=== PATIENT | male | born 1975 | race Caucasian/White ===

== ENCOUNTER 2022-11-29 11:40 | Outpatient (REF) | payer BC, SELFPAY ==
[2022-11-29 13:30] LABS: MANUAL DIFF FLAG NO
[2022-11-29 13:32] LABS: Basophils Absolute Auto 0.1 X10*3/uL (0.0-0.2); Eosinophils Absolute Auto 0.2 X10*3/uL (0.0-0.4); Eosinophils Percent Auto 4.5 % (0-4); Hematocrit 49.2 % (42.0-52.0); Imm Gran Abs Auto 0.03 X10*3/uL (0.00-0.03); Imm Gran Pct Auto 0.6 % (0.0-0.4); Lymphocytes Absolute Auto 1.7 X10*3/uL (1.2-4.9); Lymphocytes Percent Auto 34.4 % (20-40); Mean Corpuscular HGB Conc 34.6 g/dl (31.0-36.0); Mean Corpuscular Hemoglobin 31.4 pg (27.0-33.0); Mean Corpuscular Volume 90.9 fL (80.0-98.0); Mean Platelet Volume 9.5 fL (9.4-12.4); Monocytes Absolute Auto 0.4 X10*3/uL (0.1-1.2); Monocytes Percent Auto 7.3 % (2-11); Neutrophils Absolute Auto 2.6 x10*3/uL (2.0-8.3); Neutrophils Percent Auto 52.2 % (45-73); Platelet Count 177 X10*3/uL (160-400); Red Blood Count 5.41 X10*6/uL (4.60-5.80); White Blood Count 5.1 X10*3/uL (4.8-10.8)
[2022-11-29 13:56] LABS: Alanine Aminotransferase 111 U/L (0-40); Albumin Level 4.3 g/dL (3.5-5.0); Alkaline Phosphatase 103 U/L (39-117); Anion Gap 14 (12-20); Aspartate Amino Transferase 64 U/L (5-37); Bilirubin Total 0.7 mg/dL (0.0-1.0); Blood Urea Nitrogen 9 mg/dL (9-16); Calcium 9.1 mg/dL (8.4-10.2); Carbon Dioxide 25 mmol/L (22-29); Chloride 107 mmol/L (96-108); Cholesterol 257 mg/dL; Estimated Glomerular Filt Rate > 60; Glucose Random 120 mg/dL (60-115); HDL Cholesterol 46 mg/dL; LDL Cholesterol Calculated 135 mg/dl; Potassium 4.3 mmol/L (3.3-5.1); Sodium 142 mmol/L (135-145); Triglycerides 382 mg/dL
[2022-11-29 14:27] LABS: Folate 8.5 ng/mL (> or = 4.0); Free T4 (Free Thyroxine) 0.89 ng/dL (0.71-1.85); Thyroid Stimulating Hormone 1.81 uIU/mL (0.32-4.0); Vitamin B12 342 pg/mL (200-900)
[2022-12-01 04:25] LABS: Syphilis Screen Nonreactive (Nonreactive)
[2022-12-01 04:37] LABS: HBc Num1 0.09 S/CO (0.00-0.79); HBsAGNum1 0.29 S/CO (0.00-0.99); HIV AB/AG Nonreactive (Nonreactive); HIV Num 1 0.06 S/CO (0.00-0.99); Hepatitis B Core Antibody Nonreactive (Nonreactive); Hepatitis B Surface Antigen Negative (Negative); ~HepC Num1 0.09 S/CO (0.00-0.79); ~Hepatitis B Surface Antibody NONREACTIVE (Nonreactive); ~Hepatitis C Antibody Nonreactive (Nonreactive)
== END 2022-11-29 11:41 | disposition home or self-care (01) ==
LOC: HO.HMGCLDS 11:40
PROVIDERS: PCP Internal Medicine; Visit Provider Internal Medicine
DX: E66.9 Obesity, unspecified (principal); E78.00 Pure hypercholesterolemia, unspecified; R79.89 Other specified abnormal findings of blood chemistry; Z20.2 Contact with and (suspected) exposure to infections with a predominantly sexual mode of transmission
CPT/HCPCS: 36415; 80053; 80061; 82607; 82746; 84439; 84443; 85025; 86704; 86706; 86780; 86803; 87340; 87389

== ENCOUNTER 2023-02-23 11:11 | Outpatient (AMB) | payer BC, SELFPAY ==
[2023-02-23 11:16] VITALS: BP 144/86; PULSE 94; O2SAT 99; BMI 37.4
--- NOTE | 2023-02-23 11:16 | A.OFFPC_ITS ---
Vital Signs 02/23/23 11:16 02/23/23 12:14 Height 5 ft 10 in Weight 261 lb BMI 37.4 BP 144/86 H 140/100 H Blood Pressure Location Lt brachial Lt brachial Position Sitting Sitting Pulse 94 Pulse Source Pulse Oximeter Temp Source Skin Pulse Oximetry (%) 99 Oxygen Delivery Method Room Air Intake Visit Reasons: Annual Exam Intake Note: Patient is here today for a physical. 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 Patient has been advised blood work. And has been referred to Gastroenterology records given patient had a sleep study May revealing obstructive sleep apnea on the CPAP 6-16 cm water. Tetanus shot 04/2013 blood work that was done in 2016 showing elevated LDL at 145+ 2013 noted also hypogonadism but repeat testing in 2017 normal 1016 also noted orthopedic note symptomatic medial meniscal tear on the right. PFSH Medical History (Updated 02/23/23 @ 12:43 by Alhaji Schroeder MD) Hypogonadism in male Surgical History (Updated 11/20/22 @ 13:37 by Alhaji Schroeder MD) H/O right knee surgery History of vasectomy Family History (Updated 02/23/23 @ 12:18 by Alhaji Schroeder MD) Maternal Grandfather Prostate cancer Social History (Updated 02/23/23 @ 12:19 by Alhaji Schroeder MD) Housing: House Alcohol intake: current Patient Tobacco Use Status: Current everyday Tobacco user Cigarettes Per Day: 2 Years Smoked: cigarettes 2011- 2cigaretes- decreasing e-Cigarette/Vaping Use: Never Used Second Hand Smoke Exposure: No service: No Current occupational status: employed Current occupational exposures/hazards: No Cognitive needs: No Hearing needs: No Vision needs: No Questionnaire PHQ-9 Over the last 2 weeks, how often have you been bothered by any of the following problems? 1. Little interest or pleasure in doing things: not at all 2. Feeling down, depressed, or hopeless: not at all 3. Trouble falling or staying asleep, or sleeping too much: not at all 4. Feeling tired or having little energy: not at all 5. Poor appetite or overeating: not at all 6. Feeling bad about yourself - or that you are a failure or have let yourself or your family down: not at all 7. Trouble concentrating on things, such as reading the newspaper or watching television: not at all 8. Moving or speaking so slowly that other people could have noticed. Or the opposite - being so fidgety or restless that you have been moving around a lot more than usual: not at all 9. Thoughts that you would be better off or of hurting yourself in some way: not at all Total score: 0 Source: Developed by Drs. Sterling Lund, Gabby Hunt, Raudel Rodriguez and colleagues, with an educational ernie from [employer]. Thrive Questionnaire Date Thrive assessed: 11/20/22 I am a: Patient What is your living situation today?: I have a steady place to live Within the past 12 months, did the food you bought not last and you didn't have the money to get more?: Never true Within the past 12 months, did you worry whether your food would run out before you got money to buy more?: Never true Do you have trouble paying for medicines?: No Do you have trouble getting transportation to medical appointments?: No Do you have trouble paying your heating and electricity bill?: No Do you have trouble taking care of your child, family member or friend?: No Do you have trouble with day-to-day activities such as bathing, preparing meals, shopping, managing finances, etc.?: No Are you currently unemployed and looking for a job?: No Are you interested in more education?: No Currently or been in a relationship where the following occur: no concerns reported AUDIT C Alcohol Use Questionnaire (AUDIT-C) 1. How often do you have a drink containing alcohol?: 2-3 times a week 2. How many drinks containing alcohol do you have on a typical day when you are drinking?: 3 or 4 3. How often do you have six or more drinks on one occasion?: Never Total Score: 4 JABIER-7 AMB Questionnaire JABIER-7 Date JABIER - 7 assessed: 02/23/23 Feeling nervous, anxious, or on edge: 0 = Not at all Not being able to stop or control worryin = Not at all Worrying too much about different things: 0 = Not at all Trouble relaxin = Not at all Being so restless that it is hard to sit still: 0 = Not at all Becoming easily annoyed or irritable: 0 = Not at all Feeling afraid as if something awful might happen: 0 = Not at all Total JABIER-7 score (0-4 normal; 5-9 mild; 10-14 moderate; 15-21 severe): 0 Source: Developed by Drs. Sterling Lund, Gabby Hunt, Raudel Rodriguez and colleagues, with an educational ernie from [employer]. Review of Systems Const Denies poor appetite and Denies weakness Eyes Denies no additional complaints ENT Reports Normal hearing present, Denies dizziness, Denies nasal congestion, Denies tinnitus and Denies sore throat Card Denies chest pain, Denies syncope, Denies rapid heart rate and Denies dyspnea Resp Denies cough and Denies dyspnea GI Denies change in stool character, Reports constipation, Denies diarrhea, Denies nausea and Denies vomiting Denies dysuria and Denies urinary frequency Neuro Reports Normal hearing present, Denies confusion, Denies dizziness, Denies syncope and Denies weakness Psych Denies confusion Physical exam (Primary Care) Vital Signs: Last Vital Signs Pulse 94 02/23/23 11:16 BP 140/100 H 02/23/23 12:14 Pulse Ox 99 02/23/23 11:16 Oxygen Delivery Method Room Air 02/23/23 11:16 BMI result Body Mass Index 37.4 Tobacco/Smoking Status: Tobacco use Status Tobacco use date assessed 02/23/23 02/23/23 11:17 Patient Tobacco Use Status Current everyday Tobacco 02/23/23 12:19 e-Cigarette/Vaping Use Never Used 02/23/23 12:19 PHQ-9: PHQ-9 Score PHQ-9: Total score 0 02/23/23 12:22 Thrive Assessment: Date of Thrive Assessment Date Thrive assessed 11/20/22 02/23/23 11:17 Currently or been in a relationship where the following occur: no concerns reported Const General: No confusion Orientation/consciousness: No confusion HENMT Head: Yes normocephalic Ears: external ears normal and TM's normal bilaterally Face and sinus: Yes normal facial exam Mouth: moist mucous membranes Throat: Yes tonsils normal Eyes Conjunctivae: conjunctivae normal Pupils: Equal, round and reactive pupils present and Pupil accommodation reflex normal Direct Ophthalmoscopy: normal light reflex Neck Neck: No lymphadenopathy Thyroid: Thyroid normal Chest Chest palpation & inspection: normal inspection of the chest Resp Effort & Inspection: normal respiratory effort and no audible wheezes Auscultation: clear to auscultation bilaterally, no crackles, no wheezes and lung sounds not diminished Cardio Rate: regular rate Rhythm: regular rhythm Peripheral pulses: radial pulses present and dorsalis pedis present GI Palpation (GI): no masses Auscultation: normal bowel sounds and normoactive bowel sounds Rectal Exam - Male: Yes deferred Skin General skin exam: no rashes or lesions noted Rashes: no rashes Neuro General: No confusion Cranial nerves: Yes Equal, round and reactive pupils present and Yes Normal hearing present Cognition (Neuro): normal cognition Gait exam (Neuro): Normal gait present Motor exam (neuro): 5/5 motor strength present throughout Deep tendon reflexes (DTR's): Right brachioradialis reflex intensity grade: 2+, Left brachioradialis reflex intensity grade: 2+, Right patellar reflex intensity grade: 2+ and Left patellar reflex intensity grade: 2+ Extrem General: No edema Results AMB Hemoglobin A1c AMB Hemoglobin A1c 5.6 % Last Edit by Kailyn Oliveros CMA on 02/23/23 12 :23 Immunizations Boostrix Tdap Performing Provider: Alhaji Schroeder MD Administered by: TERESA Bob on 02/23/23 12:53 Dose Route Admin Location Lot Number Expiration Date [place] Press Operator Helper 0.5 mL IM Left Deltoid [id number] 04/22/25 [id number] Speed Dating by [employer] VIS Given Date VIS Provided VIS Publication Date 02/23/23 Single Vaccine 21 Eligibility Eligibility Date Funding Source Not C Eligible 02/23/23 Private Results Reviewed Results Reviewed: Laboratory Last Values Hgb A1c (Clinic) 5.6 % (4.0-6.0) 02/23/23 12:11 Assessment and Plan Assessment & Plan (1) Annual physical exam: Code(s): Z00.00 - Encounter for general adult medical examination without abnormal findings (2) Obesity (BMI 30-39.9): Code(s): E66.9 - Obesity, unspecified Plan: Diet and exercise (3) Colon cancer screening: Code(s): Z12.11 - Encounter for screening for malignant neoplasm of colon Plan: Reminded about colon cancer screening (4) LFT elevation: Code(s): R79.89 - Other specified abnormal findings of blood chemistry Plan: Advised to retest (5) Hypercholesterolemia: Code(s): E78.00 - Pure hypercholesterolemia, unspecified Plan: Avoid fried foods, chicken skin, eggs, butter margarine, pastries and meat. Be it pork or beef they have a lot of cholesterol LDL goal of less than 130 and triglyceride of less than 150 (6) Elevated blood sugar: Code(s): R73.9 - Hyperglycemia, unspecified Plan: Decrease the amount of carbohydrate intake, pasta, bread, rice and potatoes are all sugar and that is aside from all the sweet stuff, remember that fruits are good but they are Sweet also. (7) Obstructive sleep apnea: Code(s): G47.33 - Obstructive sleep apnea (adult) (pediatric) Plan: loose weight (8) Blood pressure elevated without history of HTN: Code(s): R03.0 - Elevated blood-pressure reading, without diagnosis of hypertension Plan: check The BP at home and record Orders: Orders Comprehensive Met. Panel Today R73.9 - Hyperglycemia, unspecified US abdomen complete Today R79.89 - Other specified abnormal findings of blood chemistry TDaP Immunization Today Z23 - Encounter for immunization AMB Hemoglobin A1c Today Z13.9 - Encounter for screening, unspecified Coding Level of Care Code Est Pt Prev Care 40-64y(38285) Diagnoses Annual physical exam Z00.00 Obesity (BMI 30-39.9) E66.9 Colon cancer screening Z12.11 LFT elevation R79.89 Hypercholesterolemia E78.00 Elevated blood sugar R73.9 Obstructive sleep apnea G47.33 Blood pressure elevated without history of HTN R03.0
[2023-02-23 12:14] VITALS: BP 140/100
== END 2023-02-23 12:58 | disposition home or self-care (01) ==
PROVIDERS: PCP Internal Medicine; Visit Provider Internal Medicine
DX: Z00.00 Encounter for general adult medical examination without abnormal findings (principal); E66.9 Obesity, unspecified; R73.9 Hyperglycemia, unspecified; Z68.37 Body mass index [BMI] 37.0-37.9, adult; Z23 Encounter for immunization; R79.89 Other specified abnormal findings of blood chemistry; E78.00 Pure hypercholesterolemia, unspecified; G47.33 Obstructive sleep apnea (adult) (pediatric); R03.0 Elevated blood-pressure reading, without diagnosis of hypertension
CPT/HCPCS: 83036; 90471; 90715; 99396

== ENCOUNTER 2023-10-07 09:17 | Outpatient (REF) | payer BC, SELFPAY ==
[2023-10-07 10:58] LABS: Alanine Aminotransferase 53 U/L (0-40); Albumin Level 4.2 g/dL (3.5-5.0); Alkaline Phosphatase 122 U/L (39-117); Anion Gap 15 (12-20); Aspartate Amino Transferase 47 U/L (5-37); Bilirubin Direct 0.5 mg/dL (0.0-0.5); Bilirubin Total 1.4 mg/dL (0.0-1.0); Blood Urea Nitrogen 9 mg/dL (9-16); Calcium 8.9 mg/dL (8.4-10.2); Carbon Dioxide 27 mmol/L (22-29); Chloride 101 mmol/L (96-108); Estimated Glomerular Filt Rate > 60; Glucose Random 171 mg/dL (60-115); Potassium 3.8 mmol/L (3.3-5.1); Sodium 139 mmol/L (135-145); Total Protein 7.6 g/dL (6.5-8.0)
[2023-10-07 11:15] LABS: Ferritin 1350 ng/mL (20-250)
[2023-10-07 11:38] LABS: HBc Num1 0.14 S/CO (0.00-0.79); HBsAGNum1 0.37 S/CO (0.00-0.99); Hepatitis B Core Antibody Nonreactive (Nonreactive); Hepatitis B Surface Antigen Negative (Negative); ~HepC Num1 0.12 S/CO (0.00-0.79); ~Hepatitis B Surface Antibody NONREACTIVE (Nonreactive); ~Hepatitis C Antibody Nonreactive (Nonreactive)
== END 2023-10-07 09:18 | disposition home or self-care (01) ==
LOC: HO.HMGCLDS 09:17
PROVIDERS: PCP Internal Medicine; Visit Provider Internal Medicine
DX: R79.89 Other specified abnormal findings of blood chemistry (principal)
CPT/HCPCS: 36415; 80053; 82248; 82728; 86704; 86706; 86803; 87340

== ENCOUNTER 2023-10-12 14:34 | Outpatient (AMB) | payer BC, SELFPAY ==
[2023-10-12 14:44] VITALS: BP 148/90; PULSE 94; O2SAT 96; BMI 36.4
--- NOTE | 2023-10-12 14:44 | A.OFFPC_ITS ---
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 Last seen in February 2023 patient was reminded about colonoscopy noted LFT elevation and blood pressure elevation. [facility] Medical History (Updated 10/12/23 @ 15:54 by Alhaji Schroeder MD) Hypogonadism in male Surgical History (Updated 11/20/22 @ 13:37 by Alhaji Schroeder MD) H/O right knee surgery History of vasectomy Family History (Updated 02/23/23 @ 12:18 by Alhaji Schroeder MD) Maternal Grandfather Prostate cancer Social History (Updated 02/23/23 @ 12:19 by Alhaji Schroeder MD) Housing: House Alcohol intake: current Patient Tobacco Use Status: Current everyday Tobacco user Cigarettes Per Day: 2 Years Smoked: cigarettes 2011- 2cigaretes- decreasing e-Cigarette/Vaping Use: Never Used Second Hand Smoke Exposure: No service: No Current occupational status: employed Current occupational exposures/hazards: No Cognitive needs: No Hearing needs: No Vision needs: No Questionnaire PHQ-9 Over the last 2 weeks, how often have you been bothered by any of the following problems? 1. Little interest or pleasure in doing things: not at all 2. Feeling down, depressed, or hopeless: not at all 3. Trouble falling or staying asleep, or sleeping too much: not at all 4. Feeling tired or having little energy: not at all 5. Poor appetite or overeating: not at all 6. Feeling bad about yourself - or that you are a failure or have let yourself or your family down: not at all 7. Trouble concentrating on things, such as reading the newspaper or watching television: not at all 8. Moving or speaking so slowly that other people could have noticed. Or the opposite - being so fidgety or restless that you have been moving around a lot more than usual: not at all 9. Thoughts that you would be better off or of hurting yourself in some way: not at all Total score: 0 Source: Developed by Drs. Sterling Lund, Gabby Hunt, Raudel Rodriguez and colleagues, with an educational ernie from [employer]. Thrive Questionnaire Date Thrive assessed: 10/12/23 I am a: Patient What is your living situation today?: I have a steady place to live Within the past 12 months, did the food you bought not last and you didn't have the money to get more?: Never true Within the past 12 months, did you worry whether your food would run out before you got money to buy more?: Never true Do you have trouble paying for medicines?: No Do you have trouble getting transportation to medical appointments?: No Do you have trouble paying your heating and electricity bill?: No Do you have trouble taking care of your child, family member or friend?: No Do you have trouble with day-to-day activities such as bathing, preparing meals, shopping, managing finances, etc.?: No Are you currently unemployed and looking for a job?: No Are you interested in more education?: No Currently or been in a relationship where the following occur: no concerns reported THRIVE Score: 0 AUDIT C Alcohol Use Questionnaire (AUDIT-C) 1. How often do you have a drink containing alcohol?: 2-3 times a week 2. How many drinks containing alcohol do you have on a typical day when you are drinking?: 3 or 4 3. How often do you have six or more drinks on one occasion?: Never Total Score: 4 JABIER-7 AMB Questionnaire JABIER-7 Date JABIER - 7 assessed: 10/12/23 Source: Developed by Drs. Sterling Lund, Gabby Raudel King and colleagues, with an educational ernie from [employer]. Physical exam (Primary Care) Vital Signs: Last Vital Signs Pulse 94 10/12/23 14:44 BP 148/90 H 10/12/23 14:44 Pulse Ox 96 10/12/23 14:44 Oxygen Delivery Method Room Air 10/12/23 14:44 BMI result Body Mass Index 36.4 Tobacco/Smoking Status: Tobacco use Status Tobacco use date assessed 10/12/23 10/12/23 14:45 Patient Tobacco Use Status Current everyday Tobacco 10/12/23 14:45 e-Cigarette/Vaping Use Never Used 10/12/23 14:45 PHQ-9: PHQ-9 Score PHQ-9: Total score 0 10/12/23 19:59 Thrive Assessment: Date of Thrive Assessment Date Thrive assessed 10/12/23 10/12/23 14:45 Currently or been in a relationship where the following occur: no concerns reported Const General: alert; No acute distress Eyes Conjunctivae: conjunctivae normal Resp Auscultation: clear to auscultation bilaterally Cardio Rate: regular rate Rhythm: regular rhythm GI Inspection: Yes normal to inspection Extrem General: Yes normal to inspection and No edema Assessment and Plan Assessment & Plan (1) Blood pressure elevated without history of HTN: Code(s): R03.0 - Elevated blood-pressure reading, without diagnosis of hypertension Plan: Advised to monitor blood pressure and to start medication. (2) Hypercholesterolemia: Code(s): E78.00 - Pure hypercholesterolemia, unspecified Plan: Avoid fried foods, chicken skin, eggs, butter margarine, pastries and meat. Be it pork or beef they have a lot of cholesterol LDL goal of less than 130 and triglyceride of less than 150 (3) LFT elevation: Code(s): R79.89 - Other specified abnormal findings of blood chemistry Plan: Concern about elevated ferritin. Referral to Hematology Oncology done (4) Obesity (BMI 30-39.9): Code(s): E66.9 - Obesity, unspecified Plan: Diet and exercise (5) Colon cancer screening: Code(s): Z12.11 - Encounter for screening for malignant neoplasm of colon Plan: Reminded about colonoscopy (6) Elevated ferritin: Code(s): R79.89 - Other specified abnormal findings of blood chemistry Plan: Advised referral to Hematology-Oncology (7) Hypertension: Code(s): I10 - Essential (primary) hypertension Plan: Continue with blood pressure medication. Decrease salt intake and exercise started on hydrochlorothiazide (8) Impaired fasting blood sugar: Code(s): R73.01 - Impaired fasting glucose Plan: Decrease the amount of carbohydrate intake, pasta, bread, rice and potatoes are all sugar and that is aside from all the sweet stuff, remember that fruits are good but they are Sweet also. Orders: Orders Comprehensive Met. Panel Today R73.01 - Impaired fasting glucose Thyroid Stimulating Hormone Today E78.00 - Pure hypercholesterolemia, unspecified Free T4 (Free Thyroxine) Today E78.00 - Pure hypercholesterolemia, unspecified US abdomen complete Today R79.89 - Other specified abnormal findings of blood chemistry Hemoglobin A1c Today R73.01 - Impaired fasting glucose Lipid Panel Today E78.00 - Pure hypercholesterolemia, unspecified, R73.01 - Impaired fasting glucose Complete Blood Count Auto Diff Today R73.01 - Impaired fasting glucose Referrals Gastroenterology Referral Z12.11 - Encounter for screening for malignant neoplasm of colon Hematology & Oncology Referral R79.89 - Other specified abnormal findings of blood chemistry Medications: New hydrochlorothiazide 12.5 mg PO DAILY 30 tabs 3RF I10 - Essential (primary) hypertension Coding Level of Care Code Est Pt Level 4 (49234) Diagnoses Blood pressure elevated without history of HTN R03.0 Hypercholesterolemia E78.00 LFT elevation R79.89 Obesity (BMI 30-39.9) E66.9 Colon cancer screening Z12.11 Elevated ferritin R79.89 Hypertension I10 Impaired fasting blood sugar R73.01
== END 2023-10-12 16:46 | disposition home or self-care (01) ==
PROVIDERS: PCP Internal Medicine; Visit Provider Internal Medicine
DX: R03.0 Elevated blood-pressure reading, without diagnosis of hypertension (principal); E78.00 Pure hypercholesterolemia, unspecified; E66.9 Obesity, unspecified; Z68.36 Body mass index [BMI] 36.0-36.9, adult; R79.89 Other specified abnormal findings of blood chemistry; Z12.11 Encounter for screening for malignant neoplasm of colon; I10 Essential (primary) hypertension; R73.01 Impaired fasting glucose
CPT/HCPCS: 99214

== ENCOUNTER 2023-10-16 10:07 | Outpatient (REF) | payer BC, SELFPAY ==
--- NOTE | ~2023-10-16 | US_ITS ---
EXAMINATION: US ABDOMEN COMPLETE CLINICAL INFORMATION: Other specified abnormal findings of blood chemistry. COMPARISON: None available. TECHNIQUE: Real-time imaging of the abdominal viscera. Technically limited study secondary to body habitus. FINDINGS: PANCREAS: Normal. ABDOMINAL AORTA: Obscured. INFERIOR VENA CAVA: Obscured. LIVER: Enlarged measuring 21.9 cm right lobe length. The liver is normal in size. The liver contour is normal. There is diffuse increased liver parenchymal echogenicity, consistent with hepatic steatosis. No focal hepatic lesion. There is no intrahepatic biliary duct dilatation seen. GALLBLADDER: Normal. The gallbladder is physiologically distended without evidence of stones, sludge, polyps, wall thickening or pericholecystic fluid. COMMON BILE DUCT: Normal in caliber measuring 0.23 cm in diameter. RIGHT KIDNEY: Normal. No hydronephrosis. No renal calculi or focal parenchymal lesions. The kidney measures 11.1 cm in maximum dimension. LEFT KIDNEY: Normal. No hydronephrosis. No renal calculi or focal parenchymal lesions. The kidney measures 12.1 cm in maximum dimension. SPLEEN: Normal. The spleen measures 10.3 cm in maximum dimension. FREE FLUID: None. US/US abdomen complete IMPRESSION: Enlarged steatotic liver.
== END 2023-10-16 10:08 | disposition home or self-care (01) ==
LOC: HO.HMGCX 10:07
PROVIDERS: PCP Internal Medicine; Visit Provider Internal Medicine
DX: R79.89 Other specified abnormal findings of blood chemistry (principal)
CPT/HCPCS: 76700

== ENCOUNTER → 2023-11-17 12:58 | Outpatient (BNV) | payer BC, SELFPAY | PROVIDERS: PCP Internal Medicine; Referring Provider Internal Medicine; Visit Provider Internal Medicine | DX: R79.89 Other specified abnormal findings of blood chemistry (principal) | CPT/HCPCS: 99204 ==

== ENCOUNTER 2025-03-02 15:38 | Outpatient (AMB) | payer SELFPAY ==
[2025-03-02 15:54] VITALS: BP 132/88; PULSE 90; O2SAT 97; BMI 33.3
--- NOTE | 2025-03-02 15:54 | MHC.PC.OV ---
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: No Accompanied by: Self / Same As Patient Allergies No Known Allergies Allergy (Verified 03/02/25 15:55) Tobacco use date assessed: 03/02/25 Dental Screening Dental Screen Date: 03/02/25 Did you have a dental visit in the last 12 months?: No Did you have a dental problem in the last 6 months where you did not have access to dental care?: No Was dental information given to patient?: No PFSH Medical History Hypogonadism in male Surgical History H/O right knee surgery History of vasectomy Family History Maternal Grandfather Prostate cancer Social History Housing: House Alcohol intake: current Patient Tobacco Use Status: Current everyday Tobacco user Years Smoked: cigarettes 2011- 2cigaretes- decreasing e-Cigarette/Vaping Use: Never Used Second Hand Smoke Exposure: No service: No Current occupational status: employed Current occupational exposures/hazards: No Cognitive needs: No Hearing needs: No Vision needs: No Questionnaire PHQ-9 Over the last 2 weeks, how often have you been bothered by any of the following problems? 1. Little interest or pleasure in doing things: not at all 2. Feeling down, depressed, or hopeless: not at all 3. Trouble falling or staying asleep, or sleeping too much: not at all 4. Feeling tired or having little energy: not at all 5. Poor appetite or overeating: not at all 6. Feeling bad about yourself - or that you are a failure or have let yourself or your family down: not at all 7. Trouble concentrating on things, such as reading the newspaper or watching television: not at all 8. Moving or speaking so slowly that other people could have noticed. Or the opposite - being so fidgety or restless that you have been moving around a lot more than usual: not at all 9. Thoughts that you would be better off or of hurting yourself in some way: not at all Total score: 0 35031 - PHQ-9 Billing: Yes Source: Developed by Drs. Sterling Lund, Gabby Hunt, Raudel Rodriguez and colleagues, with an educational ernie from [employer]. Thrive Questionnaire Date Thrive assessed: 03/02/25 I am a: Patient What is your living situation today?: I have a steady place to live Within the past 12 months, did the food you bought not last and you didn't have the money to get more?: Never true Within the past 12 months, did you worry whether your food would run out before you got money to buy more?: Never true Do you have trouble paying for medicines?: No Do you have trouble getting transportation to medical appointments?: No Do you have trouble paying your heating and electricity bill?: No Do you have trouble taking care of your child, family member or friend?: No Do you have trouble with day-to-day activities such as bathing, preparing meals, shopping, managing finances, etc.?: No Are you currently unemployed and looking for a job?: No Are you interested in more education?: No Please select the resources that you would like help with: None Currently or been in a relationship where the following occur: No concerns reported THRIVE Score: 0 AUDIT C Alcohol Use Questionnaire (AUDIT-C) 1. How often do you have a drink containing alcohol?: 2-3 times a week 2. How many drinks containing alcohol do you have on a typical day when you are drinking?: 5 or 6 3. How often do you have six or more drinks on one occasion?: Monthly Total Score: 7 JABIER-7 AMB Questionnaire JABIER-7 Date JABIER - 7 assessed: 03/02/25 Feeling nervous, anxious, or on edge: 0 = Not at all Not being able to stop or control worryin = Not at all Worrying too much about different things: 0 = Not at all Trouble relaxin = Not at all Being so restless that it is hard to sit still: 0 = Not at all Becoming easily annoyed or irritable: 0 = Not at all Feeling afraid as if something awful might happen: 0 = Not at all Total JABIER-7 score (0-4 normal; 5-9 mild; 10-14 moderate; 15-21 severe): 0 Source: Developed by Drs. Sterling Lund, Gabby Hunt, Raudel Rodriguez and colleagues, with an educational ernie from [employer]. JABIER-7 Assessment Billing JABIER-7 Assessment Tool: JABIER-7 Assessment 39808 Physical exam (Primary Care) Vital Signs: Last Vital Signs Pulse 90 03/02/25 15:54 BP 132/88 03/02/25 15:54 Pulse Ox 97 03/02/25 15:54 Oxygen Delivery Method Room Air 03/02/25 15:54 BMI result Body Mass Index 33.3 Tobacco/Smoking Status: Tobacco use Status Tobacco use date assessed 03/02/25 03/02/25 15:58 Patient Tobacco Use Status Current everyday Tobacco 03/02/25 15:58 e-Cigarette/Vaping Use Never Used 03/02/25 15:58 PHQ-9: PHQ-9 Score PHQ-9: Total score 0 03/02/25 15:58 Thrive Assessment: Date of Thrive Assessment Date Thrive assessed 03/02/25 03/02/25 15:58 Currently or been in a relationship where the following occur: No concerns reported Who was present: R ear foreign body Const General: alert; No acute distress Eyes Conjunctivae: conjunctivae normal Resp Auscultation: clear to auscultation bilaterally Cardio Rate: regular rate Rhythm: regular rhythm GI Inspection: Yes normal to inspection Extrem General: Yes normal to inspection and No edema Office Procedures Cerumen Removal Details: Ear phone tip removal on the right ear From which ear canal was the cerumen removed: right Removal: otoscope w/curette, cerumen loop/spoon and other (Forceps) Notes: patient tolerated procedure well, no complications and ear canal clear [id number] Wax Removal by Spoon/Curette (Foreign body ear phone tip removal through forceps) Coding Level of Care Code Est Pt Level 4 (30105) Complex EM visit Add On G2211 Diagnoses Hypertension I10 Impaired fasting blood sugar R73.01 Obesity (BMI 30-39.9) E66.9 Hepatic steatosis K76.0 Colon cancer screening Z12.11 Elevated ferritin R79.89 Obstructive sleep apnea G47.33 Foreign body in ear T16.9XXA CPT Codes Office Procedure - CPT: 76448-Vmq Wax Removal by Spoon/Curette ([id number]) Additional Codes JABIER-7 Assessment Billing - JABIER-7 Assessment Tool: JABIER-7 Assessment 83316 ([id number]) PHQ-9 - 78145 - PHQ-9 Billing: Yes ([id number]) Assessment & Plan Assessment & Plan (1) Hypertension: Code(s): I10 - Essential (primary) hypertension Category: Medical Plan: Continue with blood pressure medication. Decrease salt intake and exercise patient on hydrochlorothiazide 12.5 mg once a day (2) Impaired fasting blood sugar: Code(s): R73.01 - Impaired fasting glucose Category: Medical Plan: Decrease the amount of carbohydrate intake, pasta, bread, rice and potatoes are all sugar and that is aside from all the sweet stuff, remember that fruits are good but they are Sweet also. (3) Obesity (BMI 30-39.9): Code(s): E66.9 - Obesity, unspecified Category: Medical Plan: Diet and exercise (4) Hepatic steatosis: Comment: October 2023 Code(s): K76.0 - Fatty (change of) liver, not elsewhere classified Category: Medical Plan: This is treated with low-fat diet and exercise (5) Colon cancer screening: Code(s): Z12.11 - Encounter for screening for malignant neoplasm of colon Category: Medical Plan: Patient is reminded about colon cancer screening (6) Elevated ferritin: Code(s): R79.89 - Other specified abnormal findings of blood chemistry Category: Medical Plan: Patient has seen hematology oncology last year and was advised further workup. But was advised also abstaining from alcohol (7) Obstructive sleep apnea: Code(s): G47.33 - Obstructive sleep apnea (adult) (pediatric) Category: Medical Plan: Discussed about treatment of obstructive sleep apnea (8) Foreign body in ear: Code(s): T16.9XXA - Foreign body in ear, unspecified ear, initial encounter Category: Medical Plan: extraction done tip of ear phone Plan History of Present Illness The patient is a 49-year-old male presenting for evaluation and management of chronic medical conditions, namely hypercholesterolemia, hypertension, hepatic steatosis, and obstructive sleep apnea. He has been on a regimen of lifestyle modification for hypercholesterolemia, with focus on a low-fat diet and regular exercise. For hypertension, the patient is prescribed hydrochlorothiazide 12.5 mg daily, but he admits to inconsistent intake. Hepatic steatosis and hepatomegaly were diagnosed via ultrasound, and he was noted to have elevated ferritin levels. A referral to hematology oncology has been pursued. He denies any family history of hemochromatosis and was counseled to abstain from alcohol to aid in managing liver health. Preventative care measures include scheduling a colonoscopy for colon cancer screening, which he prefers over a mail-in test. Social history reveals excessive alcohol consumption and recent weight loss attributed to health-focused efforts. The patient also reports an episode of ear blockage, likely due to ocean water exposure, which prompted examination revealing a foreign body that was subsequently removed. Health Maintenance - Colon cancer screening referral for colonoscopy. - Recommendations for a low-fat diet and regular exercise to manage hypercholesterolemia. - Advised alcohol abstinence to manage hepatic steatosis. - Encouraged regular blood pressure monitoring and medication adherence. Social History - Employment: Recently changed jobs, currently employed at [employer]. - Healthcare: Currently seeking adequate healthcare insurance. - Substance use: Reports excessive alcohol consumption. - Weight management: Lost 20 pounds recently through health improvement efforts. - Exercise: Engages in walking and other activities regularly. Review of Systems - Cardiovascular: Denies chest pain or palpitations. - Respiratory: Denies dyspnea or cough. - Gastrointestinal: Denies significant concerns aside from ear blockage sensation after ocean exposure. Physical Exam - Ear examination: Patient requested examination due to feeling of blockage after ocean exposure Results - Labs: Elevated ferritin level at 1350 ng/mL. - Imaging: Abdominal ultrasound showing hepatomegaly with hepatic steatosis. Plan Management will continue with lifestyle modification for hypercholesterolemia. I recommended consistent daily use of hydrochlorothiazide for hypertension control. The patient should remain abstinent from alcohol to address hepatic steatosis. Follow-up care with hematology oncology is important due to elevated ferritin levels, focusing on ruling out hemochromatosis. I have arranged for colonoscopy as the preferred method for colon cancer screening. Foreign body removal from the ear was successful, with no resulting complications. Continued monitoring and adherence to intervention plans will be crucial in maintaining health. Patient was informed and verbally consented to the use of an ambient scribe for clinic note documentation during this visit. Discussion Notes During the visit, I discussed the importance of maintaining lifestyle modifications and medication adherence for managing hypercholesterolemia and hypertension. I advised the patient on abstinence from alcohol to improve liver health, stressing the potential implications of continued consumption given his hepatic steatosis. I outlined the need for a hematology oncology evaluation due to elevated ferritin levels to explore further causes such as hemochromatosis. The patient affirmed preference for undergoing colonoscopy for screening, and documentation for the procedure has been initiated. I also successfully removed a foreign body from the ear, which was contributing to blockage and provided patient education on ear safety measures post-exposure. Patient Instructions - Stick to a low-fat diet and regular exercise routine to manage cholesterol. - Take hydrochlorothiazide daily to keep blood pressure in check. - Stop drinking alcohol to help liver function. - Attend follow-up with hematology oncology for further blood tests. - Schedule a colonoscopy for colon cancer screening. - Use caution with ear health, especially following water exposure. Orders: Orders Prostate Specific Antigen Scr Today I10 - Essential (primary) hypertension Rubella IgG Antibody Today Z02.0 - Encounter for examination for admission to [facility], Z12.11 - Encounter for screening for malignant neoplasm of colon Rubeola IgG (Measles) Today Z02.0 - Encounter for examination for admission to [facility], Z12.11 - Encounter for screening for malignant neoplasm of colon Varicella IgG Antibody Today Z02.0 - Encounter for examination for admission to [facility], Z12.11 - Encounter for screening for malignant neoplasm of colon Free T4 (Free Thyroxine) Today R73.01 - Impaired fasting glucose Hemoglobin A1c Today R73.01 - Impaired fasting glucose Thyroid Stimulating Hormone Today R73.01 - Impaired fasting glucose Complete Blood Count Auto Diff Today R73.01 - Impaired fasting glucose Comprehensive Met. Panel Today R73.01 - Impaired fasting glucose Ferritin Today I10 - Essential (primary) hypertension Reticulocyte Count Today I10 - Essential (primary) hypertension Lipid Panel Today E78.00 - Pure hypercholesterolemia, unspecified, I10 - Essential (primary) hypertension IRON PROFILE Today I10 - Essential (primary) hypertension Vitamin B12 and Folate Today I10 - Essential (primary) hypertension Mumps Virus IgG Antibody Today Z02.0 - Encounter for examination for admission to educational institution, Z12.11 - Encounter for screening for malignant neoplasm of colon Referrals Gastroenterology Referral Z12.11 - Encounter for screening for malignant neoplasm of colon
== END 2025-03-02 17:02 | disposition home or self-care (01) ==
LOC: HO.HMCH 15:39
PROVIDERS: PCP Internal Medicine; Visit Provider Internal Medicine
DX: I10 Essential (primary) hypertension (principal); E66.9 Obesity, unspecified; Z68.33 Body mass index [BMI] 33.0-33.9, adult; R73.01 Impaired fasting glucose; K76.0 Fatty (change of) liver, not elsewhere classified; Z12.11 Encounter for screening for malignant neoplasm of colon; R79.89 Other specified abnormal findings of blood chemistry; G47.33 Obstructive sleep apnea (adult) (pediatric); T16.1XXA Foreign body in right ear, initial encounter

== ENCOUNTER → 2025-03-02 15:38 | Outpatient (BNVA) | payer SELFPAY | PROVIDERS: PCP Internal Medicine; Visit Provider Internal Medicine | DX: I10 Essential (primary) hypertension (principal); R73.01 Impaired fasting glucose; E66.9 Obesity, unspecified; K76.0 Fatty (change of) liver, not elsewhere classified; R79.89 Other specified abnormal findings of blood chemistry; G47.33 Obstructive sleep apnea (adult) (pediatric); T16.1XXA Foreign body in right ear, initial encounter; X58.XXXA Exposure to other specified factors, initial encounter; Y93.9 Activity, unspecified; Y92.9 Unspecified place or not applicable; Y99.9 Unspecified external cause status; Z68.33 Body mass index [BMI] 33.0-33.9, adult | CPT/HCPCS: 69200; 96127; 99212 ==